=== PATIENT | female | born 1990 | race Caucasian/White ===

== ENCOUNTER → 2021-07-16 13:30 | Outpatient (BNVA) | payer BC, SELFPAY | PROVIDERS: Visit Provider Obstetrics & Gynecology | DX: Z34.90 Encounter for supervision of normal pregnancy, unspecified, unspecified trimester (principal) | CPT/HCPCS: 82950; 84315; 84443; 85025 ==

== ENCOUNTER → 2021-08-31 11:15 | Outpatient (BNVA) | payer OTHER, BC, SELFPAY | PROVIDERS: Visit Provider Obstetrics & Gynecology | DX: Z34.80 Encounter for supervision of other normal pregnancy, unspecified trimester (principal) | CPT/HCPCS: 84315; 87081; 87086 ==

== ENCOUNTER 2021-09-20 05:27 | Inpatient (IN) | payer OTHER, SELFPAY ==
--- NOTE | 2021-09-14 10:14 | ANES.PREANE2 ---
Pre-Anesthetic Assessment Height/Weight: Height 1.65 m Operation Date: 09/20/21 07:00 Proposed Procedures p Section Repeat With Tubal(Not Applicable) - Blossom Humphries MD Familial anesthetic complications: None Was Beta Romaine taken within 24 hours: N/A Was Clonidine taken within 24 hours: N/A Social No alcohol and No tobacco Exam alert, oriented x 3, clear to auscultation bilaterally and regular rate & rhythm Airway Submandibular: within normal limits Cervical ROM: within normal limits Mallampati: Class II Dentition: full History/ROS No significant history except as noted Anesthetic Plan ASA status: 2 Anesthesia: Regional (specify below) (SAB) Other: Repeat C/S, h/o PONV--might avoid duramorph, discussed premed with benadryl Medications/Allergies Home Medications Medication Instructions Recorded Confirmed Last Taken Type PNV 153-FA 400 mcg-om3 35 mg-dha tab PO 08/16/21 09/13/21 Unknown History 25 mg-epa 5 mg-fish oil chew tablet ( Gummies) Allergies Allergy/AdvReac Type Severity Reaction Status Date / Time No Known Allergies Allergy Verified 09/13/21 12:56 [facility] Anesthesia Family History Mother Thyroid disease Grandmother Diabetes Maternal Denies family history of CAD (coronary artery disease) Clotting disorder Hyperlipidemia Chronic kidney disease (CKD) Bleeding disorder Cancer Hypertension Stroke Data Anesthesia Cardiac Studies: No Data to Display
[2021-09-20] VITALS (19 sets, daily range): BP systolic 94–136; BP diastolic 30–78; PULSE 59–89; RESP 16–17; TEMP 36.1–36.6; O2SAT 97–100; BMI 35.2
[2021-09-20] MEDS: lactated ringers 1,000 ML 999 ML IV (06:00)
[2021-09-20 06:04] LABS: Basophils % 0.4 %; Eosinophils # 0.1 10^3/uL (0.0-0.8); Eosinophils % 0.6 %; Hematocrit 40.1 % (37.0-47.0); Hemoglobin 13.6 g/dL (11.5-15.3); Lymphocytes # 1.9 10^3/uL (0.8-4.8); Lymphocytes % 23.5 %; Mean Corpuscular HGB Conc 33.9 g/dL (30.0-36.0); Mean Corpuscular Hemoglobin 28.9 pg (28.0-34.0); Mean Corpuscular Volume 85.3 fl (81-99); Mean Platelet Volume 10.4 fL (7.4-10.4); Monocytes # 0.6 10^3/uL (0.2-0.9); Neutrophils # 5.47 10^3/uL (1.8-7.7); Neutrophils % 67.5 %; Nucleated Red Blood Cells % 0 %; Platelet Count 198 10^3/cmm (130-400); Red Cell Distribution Width 13.2 % (12.1-15.1); White Blood Count 8.1 10^3/uL (4.0-10.0)
[2021-09-20 06:09] LABS: Amphetamines Screen Urine Negative (Negative); Barbiturates Screen Urine Negative (Negative); Benzodiazepines Screen Urine Negative (Negative); Cocaine Screen Urine Negative (Negative); Opiate Screen Urine Negative (Negative); PCP Screen Urine Negative (Negative); THC Screen Urine Negative (Negative)
[2021-09-20] MEDS: famotidine 20 mg/2 mL INJ IVP (06:51)
[2021-09-20] MEDS: lactated ringers 1,000 ML 125 ML IV (06:51)
[2021-09-20] MEDS: metoclopramide 5 mg/mL SDV 2 mL 10 MG IVP (06:51)
[2021-09-20] MEDS: citric acid-sodium citrate 30 mL UDC PO (06:51)
--- NOTE | 2021-09-20 06:56 | W.PM.OPSUD ---
Surgery/Procedure H&P Update DATE OF PROCEDURE: September 20, 2021 DATE H&P PERFORMED: 09/13/21 H&P UPDATE INFORMATION: I have reviewed H&P completed within last 30 days, I have examined patient prior to procedure and No changes to prior documentation CHANGES TO PREVIOUS DOCUMENTATION: The patient is here for her scheduled repeat with salpingectomy PLANNED PROCEDURE: Operation Date: 09/20/21 07:00 Proposed Procedures p Section Repeat With Tubal(Not Applicable) - Blossom Humphries MD
--- NOTE | 2021-09-20 06:57 | W.PM.OPSUD ---
Surgery/Procedure H&P Update DATE OF PROCEDURE: September 20, 2021 DATE H&P PERFORMED: 09/13/21 PLANNED PROCEDURE: Operation Date: 09/20/21 07:00 Proposed Procedures p Section Repeat With Tubal(Not Applicable) - Blossom Humphries MD Related Problem List Diagnoses (1) Sterilization consult: (2) Supervision of normal : (3) Previous delivery affecting :
--- NOTE | 2021-09-20 07:27 | ANES.PAUD2 ---
Pre-Anesthetic Update Pre-Anesthetic Assessment: Date of Surgery/Procedure: 09/20/21 Proposed Procedure: Operation Date: 09/20/21 07:00 Proposed Procedures p Section Repeat With Tubal(Not Applicable) - Blossom Humphries MD Any changes to Pre-Anesthetic Assessment?: No Last Intake: Intake Last Liquid Date 09/19/21 Last Liquid Time 22:00 Last Solid Date 09/19/21 Last Solid Time 20:00 Labs Last 48hrs: Short CBC 09/20/21 Range/Units 05:40 WBC 8.1 (4.0-10.0) 10^3/ uL Hgb 13.6 (11.5-15.3) g/dL Hct 40.1 (37.0-47.0) % MCV 85.3 (81-99) fl Plt Count 198 (130-400) 10^3/c mm Neut % (Auto) 67.5 % Neut # (Auto) 5.47 (1.8-7.7) 10^3/u L Blood Bank 09/20/21 05:40 Blood Type A Positive Rho(D) Type Positive Antibody Screen Negative Vitals: Pulse Rate 75 09/20/21 05:58 Pulse Rhythm 09/20/21 05:52 Pulse Strength 3+ Normal 09/20/21 05:52 Respiratory Effort Non-Labored 09/20/21 05:52 Respiratory Depth Normal 09/20/21 05:52 Respiratory Patter n 09/20/21 05:52 Blood Pressure 111/58 09/20/21 05:58 Oxygen Delivery Me thod 09/20/21 05:52 Exam: Pre-Anes Outpt Exam: alert, oriented x 3, clear to auscultation bilaterally and regular rate & rhythm Cardiac Studies: No Data to Display
--- NOTE | 2021-09-20 08:42 | P.PCN_ITS ---
PACU note Narrative: VSS, Good respiratory effort, report to BUSINESS DEVELOPMENT INTERN Exam: awake
--- NOTE | 2021-09-20 08:42 | PM.PACU ---
PACU note Narrative: VSS, Good respiratory effort, report to CABINETMAKER SUPERVISOR Exam: awake
--- NOTE | 2021-09-20 08:42 | PM.OP ---
Operative Report Date of procedure: September 20, 2021 Pre-op diagnosis: previous , desires repeat. Desires sterilization Post-op diagnosis: same Post-op findings: normal appearing uterus, tubes and ovaries Procedure done: repeat with bilateral salpingectomy Specimens removed/disposition: bilateral fallopian tubes to pathology Surgeon: Bolssom Humphries Anesthesia: Other (spinal) Estimated blood loss (mL): 200 IV fluids (mL): 1,200 Urine output (mL): 100 Complications: none Findings: term female in the ROT presentation Condition: stable Disposition: floor Brief History: The patient had routine care. She desired a repeat , as she has had two previous. She also desired permanent sterilization. Procedure: The patient was taken to the operating room where spinal anesthesia was administered and found to be adequate. She was prepped and draped in the normal sterile fashion in the dorsal supine position with a leftward tilt. A Pfannenstiel skin incision was made and carried down to the underlying layer of fascia. The fascia was nicked in the midline and extended laterally with the Youngblood scissors. The fascia was then tented up and the rectus muscles dissected off sharply. The rectus muscles were and the peritoneum entered bluntly with the digit. The peritoneal incision was extended superiorly and inferiorly with good visualization of the bladder. The Burt O retractor was placed. It was clear of any bowel or omentum. The bladder flap was created sharply with the Metzenbaum scissors. A low transverse uterine incision was made and carried down to the bag of water. The bag of water was ruptured and the uterine incision extended cephalocaudad. The scalp was grasped and brought through the incision. The nose and mouth were bulb suctioned. The shoulders and body delivered atraumatically. The baby was allowed to rest, while being dried, for 1 minute and then the cord was clamped and cut. The baby was handed to the waiting fund controller. The placenta was delivered by expression. The uterus was exteriorized and cleared of all clots and debris. The uterine incision was closed with 0 Vicryl in a running fashion. A second imbricating layer of 3-0 Monocryl was used to close the uterus. The bladder flap was closed with 3-0 Monocryl. There was excellent hemostasis. Attention was then turned to the salpingectomy portion of the procedure. The right fallopian tube was grasped doublly with a backcock clamp and elevated. Using the cautery device, the fallopian tube was transected near the cornua. Then, using the cautery device inferior to the tube, the mesosalpinx was cauterized and cut until the entire tube was removed. The procedure was performed similarlly on the left. There was excellent hemostasis post removal. The Burt O retractor was removed. The uterus was returned to the abdomen. The peritoneum was closed with 3-0 Monocryl, incorporating the rectus muscle. The fascia was closed with 0 Vicryl in 2 separate sutures overlapping in the midline. The skin was closed with absorbable jody. Apgars on baby 8 at 1 minute and 9 at 5 minutes. weight 6 pounds 13 ounces. Mother and baby were stable post delivery.
[2021-09-20] MEDS: sodium chloride 0.9% 100 mL Bag XX (08:43)
--- NOTE | 2021-09-20 14:56 | ANE.PACU2 ---
Inpatient post-anesthesia follow up: Airway intact: Yes Vital signs: Temperature 97.5 F Pulse Rate 60 Respiratory Rate 16 Blood Pressure 101/63 Pulse Oximetry 99 Oxygen Delivery Me thod Room Air Oxygen Flow Rate Fraction of Inspir ed Oxygen Hydration adequate: Yes Nausea and vomiting: No Pain level: 2 Mental status: Baseline
[2021-09-20] MEDS: docusate sodium 100 mg Capsule PO (18:55)
[2021-09-20] MEDS: ibuprofen 800 mg tablet PO (21:24)
[2021-09-20 22:01] LABS: Hematocrit 35.8 % (37.0-47.0); Hemoglobin 12.6 g/dL (11.5-15.3); Mean Corpuscular HGB Conc 35.2 g/dL (30.0-36.0); Mean Corpuscular Hemoglobin 30.3 pg (28.0-34.0); Mean Corpuscular Volume 86.1 fl (81-99); Mean Platelet Volume 10.4 fL (7.4-10.4); Platelet Count 167 10^3/cmm (130-400); Red Blood Count 4.16 10^6/uL (4.1-5.3); Red Cell Distribution Width 13.5 % (12.1-15.1); White Blood Count 7.9 10^3/uL (4.0-10.0)
[2021-09-21 03:15] VITALS: BP 103/63; PULSE 65; RESP 16; TEMP 36.7; O2SAT 97
[2021-09-21] MEDS: acetaminophen 325 mg Tablet 650 MG PO (06:38)
[2021-09-21] MEDS: docusate sodium 100 mg Capsule PO (07:58)
[2021-09-21] MEDS: prenatal vitamin Capsule 1 CAP PO (07:58)
[2021-09-21] MEDS: ibuprofen 800 mg tablet PO (07:59)
--- NOTE | 2021-09-21 09:18 | P.DS_ITS ---
Discharge Providers Date of Admission: 09/20/21 05:27 Date of Discharge: September 21, 2021 Attending Provider at Admission: Blossom Humphries MD Attending Provider at Discharge: Blossom Humphries MD Diagnoses at Discharge Discharge Diagnosis (1) Sterilization consult: Status: Acute (2) Supervision of normal : Status: Acute (3) Previous delivery affecting : Status: Acute Reason for Visit Reason for Visit: previous , undesired fertility [id number] Hospital Course Hospital Course The patient was admitted for surgery. she had repeat with tubal ligation. She did well postoperatively and was ready for discharge on day#1 Physical Exam Narrative: Doing well without concerns today Const: COMMON NORMALS: no acute distress, patient oriented x3, no limitations, healthy appearing, alert and well nourished GENERAL APPEARANCE: cooperative, comfortable, well kempt and well developed ORIENTATION/CONSCIOUSNESS: Yes awake, Yes oriented to person, Yes oriented to place and Yes oriented to time Resp: COMMON NORMALS: normal respiratory effort EFFORT & INSPECTION: Yes able to speak in complete sentences GI: COMMON NORMALS: Soft to palpation and non-tender PALPATION: Yes Soft to palpation Extremity: COMMON NORMALS: no calf tenderness Neuro: COMMON NORMALS: patient oriented x3 SENSORIUM/ORIENTATION: Yes alert, Yes oriented to person, Yes oriented to place and Yes oriented to time Psych: APPEARANCE: Yes well kempt Skin: WOUNDS: Yes surgical site (clean/dry/intact) Urinary Catheter Management: Ch Latex: Cath Placed During This Visit: yes, but has since been removed by the nurse Reason for Continuing Indwelling Catheter: Perioperative Use in Selected Surgeries Urinary Catheter Date of Insertion: 09/20/21 Urinary Catheter Time of Insertion: 07:25 Date Urinary Catheter Removed: 09/20/21 Time Urinary Catheter Discontinued: 17:30 Discharge Data Studies Completed and Pending Pending at discharge Category Date Time Status Urine Culture Routine Lab 09/20/21 05:30 Received Laboratory Results WBC 7.9 10^3/uL (4.0-10.0) 09/20/21 21:46 RBC 4.16 10^6/uL (4.1-5.3) 09/20/21 21:46 Hgb 12.6 g/dL (11.5-15.3) 09/20/21 21:46 Hct 35.8 % (37.0-47.0) L 09/20/21 21:46 MCV 86.1 fl (81-99) 09/20/21 21:46 MCH 30.3 pg (28.0-34.0) 09/20/21 21:46 MCHC 35.2 g/dL (30.0-36.0) 09/20/21 21:46 RDW 13.5 % (12.1-15.1) 09/20/21 21:46 Plt Count 167 10^3/cmm (130-400) 09/20/21 21:46 MPV 10.4 fL (7.4-10.4) 09/20/21 21:46 Neut % (Auto) 67.5 % 09/20/21 05:40 Lymph % (Auto) 23.5 % 09/20/21 05:40 Elbert % (Auto) 7.0 % 09/20/21 05:40 Eos % (Auto) 0.6 % 09/20/21 05:40 Baso % (Auto) 0.4 % 09/20/21 05:40 Neut # (Auto) 5.47 10^3/uL (1.8-7.7) 09/20/21 05:40 Lymph # (Auto) 1.9 10^3/uL (0.8-4.8) 09/20/21 05:40 Elbert # (Auto) 0.6 10^3/uL (0.2-0.9) 09/20/21 05:40 Eos # (Auto) 0.1 10^3/uL (0.0-0.8) 09/20/21 05:40 Baso # (Auto) 0.0 10^3/uL (0.0-0.1) 09/20/21 05:40 Nucleated RBC % (auto) 0 % 09/20/21 05:40 Nucleated RBCs # 0.0 /100WBC 09/20/21 05:40 Urine Opiates Screen Negative ng/mL (Negative) 09/20/21 05:30 Ur Barbiturates Screen Negative ng/mL (Negative) 09/20/21 05:30 Ur Phencyclidine Scrn Negative ng/mL (Negative) 09/20/21 05:30 Ur Amphetamines Screen Negative ng/mL (Negative) 09/20/21 05:30 U Benzodiazepines Scrn Negative ng/mL (Negative) 09/20/21 05:30 Urine Cocaine Screen Negative ng/mL (Negative) 09/20/21 05:30 U Marijuana (THC) Screen Negative ng/mL (Negative) 09/20/21 05:30 Blood Type A Positive 09/20/21 05:40 Rho(D) Type Positive 09/20/21 05:40 Antibody Screen Negative 09/20/21 05:40 Vitals Last Vital Signs Temp 98.0 F 09/21/21 03:15 Pulse 65 09/21/21 03:15 Resp 16 09/21/21 03:15 BP 103/63 09/21/21 03:15 Pulse Ox 97 09/21/21 03:15 Discharge Plan Discharge Patient Disposition: Home Condition: Stable Prescriptions: New ibuprofen 800 mg Tablet 800 mg PO TID Qty: 40 0RF Continued Gummies 400 mcg-35 mg- 25 mg-5 mg tablet,chewable 1 tab PO DAILY 0RF Discharge Orders: Discharge Order (Routine); Ordered 09/21/21 Ordered By: Blossom Humphries Referrals: Blossom Humphries MD [Physician] - 09/24/21 9:15 am (Your 1 week incision check is scheduled for 09/24/21 @9:15. Your 6 week post- appointment is scheduled for 11/01/21 @10:15. ) Patient Instructions: Depression (DC), Bleeding (DC), Preeclampsia and Eclampsia After Delivery (GEN), Tubal Ligation (DC), OB C- Section WHC, OB Food/Drug Interaction Guide, OB Care at Home, Opioid Safety Discharge Attestations Time Spent in Discharge Care*: less than 30 min Quality Metrics Clinical Quality Measures [ No reported AMI, CVA or VTE this stay] Coding Level of Care Code Acute Chg FW DC note Diagnoses Sterilization consult Z30.09 Supervision of normal Z34.90 Previous delivery affecting O34.219
[2021-09-21 09:42] VITALS: BP 103/64; PULSE 92; RESP 16; TEMP 36.9; O2SAT 99
== END 2021-09-21 10:05 | disposition home or self-care (01) | DRG 785 ==
PROVIDERS: Admitting Provider Obstetrics & Gynecology; Visit Provider Obstetrics & Gynecology
PROC: 10D00Z1 Extraction of Products of Conception, Low, Open Approach (ICD-10-PCS; CPT 59514; principal; 2021-09-20 07:00)
DX: O34.219 Maternal care for unspecified type scar from previous cesarean delivery (principal); Z3A.39 39 weeks gestation of pregnancy; Z37.0 Single live birth; Z30.2 Encounter for sterilization
CPT/HCPCS: 36415; 51702; 80306; 85025; 85027; 86850; 86900; 87086; 88302; J0690; J1885; J2274; J2370; J2405; J2765; J3490

== ENCOUNTER → 2023-02-21 14:00 | Outpatient (BNVA) | payer BC, SELFPAY | PROVIDERS: Visit Provider Nurse Practitioner Women's Health | DX: Z12.4 Encounter for screening for malignant neoplasm of cervix (principal); N93.0 Postcoital and contact bleeding | CPT/HCPCS: 87624 ==

== ENCOUNTER → 2023-05-15 15:21 | Outpatient (BNVA) | payer BC, SELFPAY | PROVIDERS: Visit Provider Nurse Practitioner Women's Health | DX: N93.8 Other specified abnormal uterine and vaginal bleeding (principal); N83.291 Other ovarian cyst, right side | CPT/HCPCS: 76830 ==